=== PATIENT | male | born 1975 ===

== ENCOUNTER 2016-08-01 09:08 | Emergency (ER) | payer OTHER ==
[2016-08-01 09:16] VITALS: BP 121/80; PULSE 62; RESP 20; TEMP 97; O2SAT 98
--- NOTE | 2016-08-01 09:41 | ED PDOC ---
HPI: General Adult Time Seen by Provider: 08/01/16 09:15 Chief Complaint (Nursing): Abdominal Pain Chief Complaint (Provider): rectal issue History Per: Patient, Intellectual Property Manager (sigrid jackson RN) History/Exam Limitations: no limitations Severity: Mild Additional Complaint(s): 40yo male presents w concern for a growth he felt on his rectum, denies pain, bleeding or constipation. He showed me a picture on his cell phone what appears to be a hemorrhoid. Denies weight loss, rectal trauma or previous history of same. Also notes a discoloration to his penis which has been there "for many years"- denies dysuria, pain or penile discharge. Past Medical History Reviewed: Historical Data, Nursing Documentation, Vital Signs Vital Signs: Last Vital Signs Temp 97 F L 08/01/16 09:14 Pulse 62 08/01/16 09:14 Resp 20 08/01/16 09:14 BP 121/80 08/01/16 09:14 Pulse Ox 98 08/01/16 09:48 - Medical History PMH: No Chronic Diseases - Surgical History Surgical History: No Surg Hx - Family History Family History: States: Unknown Family Hx - Social History Current smoker - smoking cessation education provided: No - Home Medications Home Medications: Ambulatory Orders Medication Instructions Recorded Hydrocortisone 2.5% (Rectal) 30 applic LA BID #1 tube 08/01/16 [Anusol-HC] - Allergies Allergies/Adverse Reactions: Allergies Allergy/AdvReac Type Severity Reaction Status Date / Time No Known Allergies Allergy Verified 08/01/16 09:14 Review of Systems ROS Statement: Except As Marked, All Systems Reviewed And Found Negative Constitutional: Negative for: Fever, Chills Cardiovascular: Negative for: Chest Pain, Palpitations Respiratory: Negative for: Cough, Shortness of Breath Gastrointestinal: Negative for: Nausea, Vomiting, Abdominal Pain, Hematochezia, Hematemesis, Rectal Pain Genitourinary Male: Negative for: Dysuria, Frequency Musculoskeletal: Negative for: Neck Pain, Shoulder Pain Skin: Negative for: Rash, Lesions, Jaundice Neurological: Negative for: Weakness, Numbness Physical Exam - Reviewed Nursing Documentation Reviewed: Yes Vital Signs Reviewed: Yes - Physical Exam Appears: Positive for: Well, Non-toxic, No Acute Distress Head Exam: Positive for: ATRAUMATIC, NORMAL INSPECTION, NORMOCEPHALIC Skin: Positive for: Normal Color, Warm, DRY Eye Exam: Positive for: EOMI, Normal appearance, PERRL ENT: Positive for: Normal ENT Inspection Neck: Positive for: Normal, Painless ROM Cardiovascular/Chest: Positive for: Regular Rate, Rhythm Respiratory: Positive for: CNT, Normal Breath Sounds Gastrointestinal/Abdominal: Positive for: Normal Exam, Bowel Sounds, Soft Back: Positive for: Normal Inspection Rectal: Positive for: Other (external hemorrhoid nontender at 7:00). Negative for: Black Stool, Tenderness Extremity: Positive for: Normal ROM Neurologic/Psych: Positive for: Alert, Oriented. Negative for: Motor/Sensory Deficits - ECG O2 Sat by Pulse Oximetry: 98 Medical Decision Making Medical Decision Making: labs ordered based on triage compliant which was inaccurate. Lab orders cancelled. Followup GI. Trial anusol. Discoloration to penis followup urology, not an emergent issue given ongoing many years. Disposition - Clinical Impression Clinical Impression: Acute hemorrhoid - Patient ED Disposition Is Patient to be Admitted: No Counseled Patient/Family Regarding: Studies Performed, Diagnosis, Need For Followup, Rx Given - Disposition Referrals: [facility] [Outside] Sameer Gardner MD, PhD [Staff Provider] - Disposition: Routine/Home Disposition Time: 09:35 Condition: STABLE Additional Instructions: See GI specialist for further testing if symptoms persist. Use medication as directed. Prescriptions: Hydrocortisone 2.5% (Rectal) [Anusol-HC] 30 applic LA BID #1 tube Instructions: Hemorrhoids (ED) Print Language: TRISTANIAN
== END 2016-08-01 09:56 | disposition home or self-care (01) ==
LOC: H.ER 09:08
DX: K64.9 Unspecified hemorrhoids (principal)